=== PATIENT | male | born 1975 | race Two or more races ===

== ENCOUNTER 2020-12-13 10:51 | Inpatient (IN) | payer OTHER ==
[2020-12-13] MEDS ORDERED: ACETAMINOPHEN 325 MG TABLET (FP) PO PRN (13:46)
[2020-12-13] MEDS ORDERED: MAG HYDROX/AL HYDROX/SIMETH 30 ML UNIT-DOSE CUP PO PRN (13:46)
[2020-12-13] MEDS ORDERED: NICOTINE POLACRILEX 2 MG GUM BUC PRN (13:46)
[2020-12-13] MEDS ORDERED: MENTHOL/PHENOL 1 EACH UD MM PRN (13:46)
[2020-12-13] MEDS ORDERED: MAGNESIUM CITRATE 300 ML BOTTLE PO PRN (13:46)
[2020-12-13] MEDS ORDERED: ONDANSETRON *ODT* 4 MG TABLET SL PRN (13:46)
[2020-12-13] MEDS ORDERED: cloNIDine HCL 0.1 MG TABLET PO PRN (13:46)
[2020-12-13] MEDS ORDERED: MAGNESIUM HYDROX 2400MG/30ML ORAL SUSPENSION 30 ML CUP PO PRN (13:46)
[2020-12-13] MEDS ORDERED: BISMUTH SUBSALICYLATE 524 MG/30 ML UD PO PRN (13:46)
[2020-12-13 14:10] VITALS: BMI 20.3
[2020-12-13] MEDS ORDERED: METHADONE HCL 10 MG TABLET (FOR DETOX USE ONLY) PO ONE (14:15)
[2020-12-13] MEDS: NICOTINE 14 MG/24 HOURS TOPICAL PATCH TD SCH (15:16)
[2020-12-13] MEDS: hydrOXYzine PAMOATE 25 MG CAPSULE (FP) PO SCH ×3 (15:16→21:01)
[2020-12-13 17:17] LABS: HEMATOCRIT 39.7 % (35.4-49); HEMOGLOBIN 13.6 GM/dL (11.7-16.9); MCH 31.5 pg (25.7-33.7); MCHC 34.2 g/dl (32.0-35.9); MEAN CELL VOLUME 92.1 fl (80-96); MEAN PLT VOLUME 8.1 fl (7.5-11.1); PLATELET COUNT 295 K/MM3 (134-434); RBC 4.31 M/mm3 (4.00-5.60); RDW 12.6 % (11.9-15.9); WHITE BLOOD COUNT 10.6 K/mm3 (4.0-10.0)
[2020-12-13 17:28] LABS: POTASSIUM 4.3 mmol/L (3.5-5.1)
[2020-12-13 17:36] LABS: ALBUMIN 4.1 g/dl (3.4-5.0); BLOOD UREA NITROGEN 11.2 mg/dL (7-18); CALCIUM 9.1 mg/dL (8.5-10.1)
[2020-12-13 17:39] LABS: CREATININE 0.7 mg/dL (0.55-1.3)
[2020-12-13 17:40] LABS: TOT PROT 7.4 g/dl (6.4-8.2)
[2020-12-13] MEDS: MELATONIN 5 MG TABLETS PO SCH (21:01)
[2020-12-13] MEDS: THIAMINE HCL 100 MG TABLET (FP) PO SCH (21:04)
[2020-12-14] MEDS: hydrOXYzine PAMOATE 25 MG CAPSULE (FP) PO SCH ×6 (06:33→22:24)
[2020-12-14] MEDS ORDERED: METHADONE HCL 10 MG TABLET (FOR DETOX USE ONLY) ONE (09:38)
[2020-12-14] MEDS ORDERED: METHADONE HCL 5 MG TABLET (FOR DETOX USE ONLY) ONE (09:38)
[2020-12-14] MEDS ORDERED: METHADONE (DETOX) 20 MG, METHADONE (DETOX) 5 MG PO ONE (10:00)
[2020-12-14] MEDS: NICOTINE 14 MG/24 HOURS TOPICAL PATCH TD SCH (10:05)
[2020-12-14] MEDS: PRENATAL VITAMINS W/ FOLIC ACID TABLET (FP) PO SCH (10:05)
[2020-12-14] MEDS: METHOCARBAMOL 500 MG TABLET PO PRN (10:06)
[2020-12-14] MEDS: IBUPROFEN 400 MG TABLET (FP) PO PRN (10:06)
[2020-12-14] MEDS: MELATONIN 5 MG TABLETS PO SCH (22:24)
[2020-12-14] MEDS: THIAMINE HCL 100 MG TABLET (FP) PO SCH (22:24)
[2020-12-15] MEDS: hydrOXYzine PAMOATE 25 MG CAPSULE (FP) PO SCH ×5 (06:08→22:13)
[2020-12-15] MEDS ORDERED: METHADONE HCL 10 MG TABLET (FOR DETOX USE ONLY) PO ONE (10:00)
[2020-12-15] MEDS: NICOTINE 14 MG/24 HOURS TOPICAL PATCH TD SCH (10:10)
[2020-12-15] MEDS: PRENATAL VITAMINS W/ FOLIC ACID TABLET (FP) PO SCH (10:10)
[2020-12-15] MEDS: IBUPROFEN 400 MG TABLET (FP) PO PRN ×2 (10:11→18:07)
[2020-12-15] MEDS: METHOCARBAMOL 500 MG TABLET PO PRN (10:11)
[2020-12-15] MEDS: PANTOPRAZOLE 40 MG TABLET PO SCH (15:33)
[2020-12-15] MEDS: ACETAMINOPHEN 325 MG TABLET (FP) PO PRN ×2 (15:33→22:14)
[2020-12-15 17:23] LABS: PH,URINE 5.5 (5.0-8.0); URINE APPEARANCE TURBID; URINE BILIRUBIN NEGATIVE (NEGATIVE); URINE COLOR ORANGE; URINE GLUCOSE (UA) NEGATIVE (NEGATIVE); URINE KETONE 15 mg/dl (NEGATIVE); URINE LEUK ESTERASE TRACE (NEGATIVE); URINE NITRITE POSITIVE (NEGATIVE); URINE PROTEIN 30 (NEGATIVE); URINE RBC 9.1 /uL (0-23.9); URINE UROBILINOGEN 0.2 mg/dL (0.2-1.0); URINE WBC 5.5 /uL (0-25.8)
[2020-12-15 17:24] LABS: EPI CELLS 17.9 /uL (0-25.1); HYALINE CASTS 3.46 /uL (0-3.1); URINE BACTERIA 38.2 /uL (0-1359)
[2020-12-15] MEDS: THIAMINE HCL 100 MG TABLET (FP) PO SCH (22:13)
[2020-12-15] MEDS: MELATONIN 5 MG TABLETS PO SCH (22:13)
[2020-12-15] MEDS: CHLORHEXIDINE GLUCONATE 0.12% 15ML CUP MM SCH (23:16)
[2020-12-15] MEDS: BENZOCAINE 20 % GEL TUBE MM PRN (23:17)
[2020-12-16] MEDS: IBUPROFEN 400 MG TABLET (FP) PO PRN (04:56)
[2020-12-16] MEDS: hydrOXYzine PAMOATE 25 MG CAPSULE (FP) PO SCH (06:01)
[2020-12-16] MEDS ORDERED: METHADONE HCL 10 MG TABLET (FOR DETOX USE ONLY) ONE (09:16)
[2020-12-16] MEDS ORDERED: METHADONE HCL 5 MG TABLET (FOR DETOX USE ONLY) ONE (09:16)
[2020-12-16] MEDS ORDERED: DICYCLOMINE HCL 10 MG CAPSULE PO PRN (09:55)
[2020-12-16] MEDS ORDERED: METHADONE (DETOX) 10 MG, METHADONE (DETOX) 5 MG PO ONE (10:00)
[2020-12-16] MEDS: PANTOPRAZOLE 40 MG TABLET PO SCH (10:07)
[2020-12-16] MEDS: PRENATAL VITAMINS W/ FOLIC ACID TABLET (FP) PO SCH (10:07)
[2020-12-16] MEDS: NICOTINE 14 MG/24 HOURS TOPICAL PATCH TD SCH (10:09)
[2020-12-16] MEDS: CHLORHEXIDINE GLUCONATE 0.12% 15ML CUP MM SCH ×2 (12:15→22:03)
[2020-12-16] MEDS: THIAMINE HCL 100 MG TABLET (FP) PO SCH (22:02)
[2020-12-16] MEDS: MELATONIN 5 MG TABLETS PO SCH (22:02)
[2020-12-16] MEDS: BENZOCAINE 20 % GEL TUBE MM PRN (22:04)
[2020-12-16] MEDS: hydrOXYzine PAMOATE 25 MG CAPSULE (FP) PO PRN (22:06)
[2020-12-17] MEDS: ACETAMINOPHEN 325 MG TABLET (FP) PO PRN (05:39)
[2020-12-17] MEDS: hydrOXYzine PAMOATE 25 MG CAPSULE (FP) PO PRN ×3 (05:40→22:14)
[2020-12-17] MEDS ORDERED: METHADONE HCL 10 MG TABLET (FOR DETOX USE ONLY) PO ONE (10:00)
[2020-12-17] MEDS: CHLORHEXIDINE GLUCONATE 0.12% 15ML CUP MM SCH ×2 (10:09→22:12)
[2020-12-17] MEDS: PRENATAL VITAMINS W/ FOLIC ACID TABLET (FP) PO SCH (10:09)
[2020-12-17] MEDS: PANTOPRAZOLE 40 MG TABLET PO SCH (10:09)
[2020-12-17] MEDS: NICOTINE 14 MG/24 HOURS TOPICAL PATCH TD SCH (10:10)
[2020-12-17] MEDS: IBUPROFEN 400 MG TABLET (FP) PO PRN (10:11)
[2020-12-17] MEDS: MELATONIN 5 MG TABLETS PO SCH (22:11)
[2020-12-17] MEDS: THIAMINE HCL 100 MG TABLET (FP) PO SCH (22:12)
[2020-12-18] MEDS ORDERED: METHADONE HCL 5 MG TABLET (FOR DETOX USE ONLY) PO ONE (06:00)
[2020-12-18 07:24] VITALS: BP 114/74; PULSE 81; TEMP 97.5
[2020-12-18 13:21] LABS: BASO % 0.8 % (0-2.0); EOS % 1.4 % (0-4.5); HEMATOCRIT 42.6 % (35.4-49); HEMOGLOBIN 14.5 GM/dL (11.7-16.9); LYMPH % 35.7 % (8-40); MCH 31.2 pg (25.7-33.7); MEAN CELL VOLUME 91.7 fl (80-96); MONO % 8.3 % (3.8-10.2); NEUT % 53.8 % (42.8-82.8); PLATELET COUNT 302 K/MM3 (134-434); RBC 4.65 M/mm3 (4.00-5.60); RDW 12.4 % (11.9-15.9); WHITE BLOOD COUNT 10.3 K/mm3 (4.0-10.0)
[2020-12-18 13:28] LABS: ALBUMIN 3.9 g/dl (3.4-5.0)
[2020-12-18 13:29] LABS: BILIRUBIN,DIRECT 0.2 mg/dL (0.0-0.2)
[2020-12-18 13:34] LABS: TOT PROT 7.2 g/dl (6.4-8.2)
== END 2020-12-18 09:14 | disposition home or self-care (01) | DRG 773 ==
LOC: YASAS 10:51 → Y3N 13:44
PROVIDERS: ADMIT Allergy & Immunology; ATTEND Allergy & Immunology
PROC: HZ2ZZZZ Detoxification Services for Substance Abuse Treatment (ICD-10-PCS; principal; 2020-12-13)
DX: F11.23 Opioid dependence with withdrawal (principal); F10.20 Alcohol dependence, uncomplicated; F14.20 Cocaine dependence, uncomplicated; F12.20 Cannabis dependence, uncomplicated; F17.210 Nicotine dependence, cigarettes, uncomplicated; D72.829 Elevated white blood cell count, unspecified; R94.5 Abnormal results of liver function studies; R74.8 Abnormal levels of other serum enzymes; R82.90 Unspecified abnormal findings in urine; R76.11 Nonspecific reaction to tuberculin skin test without active tuberculosis; Z87.828 Personal history of other (healed) physical injury and trauma
CPT/HCPCS: 36415; 71046-TC-FY; 80053; 80076; 81003; 85025; 85027; 86780; 93005; 93010; C9803; J0735; U0003